=== PATIENT | female | born 1965 | race Caucasian/White ===

== ENCOUNTER → 2020-03-15 | Outpatient (CLI) | payer MEDICARE, OTHER ==
[~2020-03-15] VITALS: Ht 160 cm; Wt 61.4 kg
[~2020-03-15] MED LIST: BAMLANIVIMAB 700 MG in NS 200 ML IV ONE; EPINEPHrine INJECTION 1 MG/ML AMP IM PRN; diphenhydrAMINE 50 MG/ML INJ (BENADRYL) IV PRN
[2020-03-15 12:53] VITALS: BP 94/66
[2020-03-15 14:28] VITALS: BP 103/70
== END ==
LOC: INFUSION 12:55
PROVIDERS: ATTEND Family Medicine
DX: U07.1 COVID-19 (principal)